=== PATIENT | female | born 1980 | race Caucasian/White ===

== ENCOUNTER 2017-02-02 05:58 | Emergency (ER) | payer OTHER ==
[~2017-02-02] VITALS: Ht 162.6 cm; Wt 77.5 kg
[~2017-02-02 05:58] MED LIST: PREN1TAB17 PO
[2017-02-02 06:01] VITALS: Ht 162.6 cm; Wt 77.5 kg
[2017-02-02] MEDS ORDERED: IBUP800T25 PO (06:56)
[2017-02-02] MEDS ORDERED: AMO500 PO (06:56)
[2017-02-02] MEDS ORDERED: DEXAMETHASONE 10 MG/ML 1 ML INJ IM ONE (07:00)
--- NOTE | 2017-02-02 07:02 | ERA ---
ER Documentation Chief Complaint Date/Time DATE: 02/02/17 TIME: 07:00 Chief Complaint sore throat x 2 days HPI 36-year-old female no past medical history who presents to the emergency room complaining of a sore throat for 2 days. She describes fever, sore throat, difficulty swallowing, no change in voice. Slight cough. No sick contacts or travel. Symptoms are moderate. ROS All systems reviewed and are negative except as per history of present illness. Medications Home Meds Active Scripts Amoxicillin* (Amoxicillin*) 500 Mg Cap, 500 MG PO BID for 10 Days, CAP Prov:JOLEEN STRATTON MD 02/02/17 Ibuprofen* (Motrin*) 800 Mg Tab, 800 MG PO Q6H Y for PAIN AND OR ELEVATED TEMP, #30 TAB Prov:JOLEEN STRATTON MD 02/02/17 Reported Medications Vit-Iron Fumarate-FA ( Tablet) 1 Each Tablet, 1 EACH PO DAILY 08/20/13 Allergies Allergies: Coded Allergies: No Known Allergy (Unverified , 02/02/17) PMhx/Soc Medical and Surgical Hx: pt denies Medical Hx, pt denies Surgical Hx Hx Alcohol Use: No Hx Substance Use: No Hx Tobacco Use: No Smoking Status: Never smoker FmHx Family History: No diabetes Physical Exam Vitals Vital Signs Date Time Temp Pulse Resp B/P Pulse Ox O2 Delivery O2 Flow Rate FiO2 02/02/17 06:01 97.7 90 20 133/71 100 Physical Exam General: Well developed, well nourished, no acute distress Head: Normocephalic, atraumatic. Eyes: EOM intact ENT: Moist mucous membranes, posterior pharynx with bilateral tonsillar swelling , right greater than left, uvula midline, scant exudate, tolerating secretions, soft submental space Neck: Mild lymphadenopathy to cervical chains Respiratory: No respiratory distress Cardiovascular: Good capillary refil Abdominal: Nondistended : Deferred MSK: No edema, no unilateral swelling, 5/5 strength Neurologic: Alert and oriented, moving all extremities, normal speech, steady gait Skin: No rash Psych: Normal mood Results 24 hrs Current Medications Medications (Trade) Dose Ordered Sig/Yvonne Route PRN Reason Start Time Stop Time Status Last Admin Dose Admin Dexamethasone (Decadron) 10 mg ONCE ONCE IM 02/02/17 07:00 02/02/17 07:01 Procedures/MDM The patient's clinical presentation is very consistent with an acute viral syndrome. However, the patient also has signs and symptoms concerning for pharyngitis that could presumably be related to strep. The patient does have significant tonsillar swelling. She would benefit from Decadron. Empiric antibiotics would seem reasonable. She does have 3 out of 4 Centor criteria. The patient does not exhibit any clinical signs or symptoms concerning for serious bacterial infection or systemic illness. Based on history and clinical exam findings the patient does not appear to have evidence of pneumonia, strep pharyngitis, urinary tract infection, bacteremia, sepsis, or meningitis. For these reasons I do not believe it is necessary to obtain laboratory testing or diagnostic imaging. I believe it would be appropriate for symptom control, and close outpatient primary care follow-up. We discussed follow up with the patient's primary care doctor within 24 to 48 hours as needed. We also discussed return to the emergency room for worsening symptoms or worsening condition. Discharge Medications: Motrin, amoxicillin Departure Diagnosis: Primary Impression: Pharyngitis Qualified Code: J02.8 - Pharyngitis due to other organism Condition: Stable Patient Instructions: Pharyngitis, Strep (Presumed) Referrals: [facility] YOU HAVE RECEIVED A MEDICAL SCREENING EXAM AND THE RESULTS INDICATE THAT YOU DO NOT HAVE A CONDITION THAT REQUIRES URGENT TREATMENT IN THE EMERGENCY DEPARTMENT. FURTHER EVALUATION AND TREATMENT OF YOUR CONDITION CAN WAIT UNTIL YOU ARE SEEN IN YOUR DOCTORS OFFICE WITHIN THE NEXT 1-2 DAYS. IT IS YOUR RESPONSIBILITY TO MAKE AN APPOINTMENT FOR FOLOW-UP CARE. IF YOU HAVE A PRIMARY DOCTOR --you should call your primary doctor and schedule an appointment IF YOU DO NOT HAVE A PRIMARY DOCTOR YOU CAN CALL OUR PHYSICIAN REFERRAL HOTLINE AT IF YOU CAN NOT AFFORD TO SEE A PHYSICIAN YOU CAN CHOSE FROM THE FOLLOWING [facility] [address] [facility] [address] [facility]. [facility] [address] [facility] [address] [facility] [address] [facility] [address] [facility]. [facility] YOU HAVE RECEIVED A MEDICAL SCREENING EXAM AND THE RESULTS INDICATE THAT YOU DO NOT HAVE A CONDITION THAT REQUIRES URGENT TREATMENT IN THE EMERGENCY DEPARTMENT. FURTHER EVALUATION AND TREATMENT OF YOUR CONDITION CAN WAIT UNTIL YOU ARE SEEN IN YOUR DOCTORS OFFICE WITHIN THE NEXT 1-2 DAYS. IT IS YOUR RESPONSIBILITY TO MAKE AN APPOINTMENT FOR FOLOW-UP CARE. IF YOU HAVE A PRIMARY DOCTOR --you should call your primary doctor and schedule and appointment IF YOU DO NOT HAVE A PRIMARY DOCTOR YOU CAN CALL OUR PHYSICIAN REFERRAL HOTLINE AT . IF YOU CAN NOT AFFORD TO SEE A PHYSICIAN YOU CAN CHOSE FROM THE FOLLOWING [facility] INSTITUTIONS: [facility] [address] [place] [address] [facility] [address] [place] [address] [facility] [address] [place] [address] Additional Instructions: Call your primary care doctor TOMORROW for an appointment during the next 1 WEEK.Tell the private secretary that you were referred from this facility.See the doctor sooner or return here if your condition worsens before your appointment time. JOLEEN STRATTON MD Feb 02, 2017 07:02
== END 2017-02-02 07:30 | disposition home or self-care (01) ==
LOC: FTE 05:58
DX: J02.8 Acute pharyngitis due to other specified organisms (principal); B96.89 Other specified bacterial agents as the cause of diseases classified elsewhere
CPT/HCPCS: 96372; J1100; Z7502